=== PATIENT | female | born 1950 | race Caucasian/White ===

== ENCOUNTER → 2017-09-29 09:09 | Outpatient (CLI) | payer MEDICARE, SELFPAY ==
--- NOTE | 2017-09-29 | DI.RAD.S_ITS ---
PROCEDURE: XR CHEST 2V INDICATIONS: TOBACCO USE AND WHEEZING TECHNIQUE: 2 views of the chest were acquired. COMPARISON: None. FINDINGS: Surgical changes and devices: None. Lungs and pleura: No pleural effusions or pneumothorax. Lungs are abnormal, with large lung volumes and an interstitial prominence but no definite mass lesion is seen. Mediastinum: Mediastinal contours are normal. Heart size is normal. Bones and chest wall: No suspicious bony abnormalities. Soft tissues appear unremarkable. IMPRESSION: A pneumonia or underlying neoplasm is not identified. Depending on clinical status, however, followup CT scanning may be warranted. A small endobronchial mass may not be detectable by plain film but often would be detectable by CT scanning if it is causing the wheezing clinically reported. Dictated by: Vernon Tao M.D. on 09/29/2017 at 9:52 Approved by: Vernon Tao M.D. on 09/29/2017 at 9:54
== END ==
PROVIDERS: PCP Family Medicine; Visit Provider Family Medicine
DX: R06.02 Shortness of breath (principal); F17.201 Nicotine dependence, unspecified, in remission
CPT/HCPCS: 71046

== ENCOUNTER 2018-05-24 08:42 | Day surgery (SDC) | payer MEDICARE, SELFPAY ==
[2018-05-24] VITALS (7 sets, daily range): BP systolic 106–127; BP diastolic 46–74; PULSE 66–104; RESP 14–22; TEMP 36.3–37.1; O2SAT 92–99; BMI 19.7
--- NOTE | 2018-05-24 | PATH_ITS ---
[facility] Accession Number: [id number] . 01 Material submitted: . sigmoid colon - SIGMOID POLYP . 02 Diagnosis: Sigmoid Colon, Polyp: Hyperplastic polyp. MRV/05/25/2018 . 02 Electronically signed: . Agustin Bell MD, PhD, Pathologist NPI- [id number] . 01 Gross description: . SIGMOID POLYP: Received in formalin is 1 fragment(s) of graham, soft tissue measuring 0.3 x 0.2 x 0.2 cm which is entirely submitted and submitted entirely in 1 cassette(s) /DMC /DMC . 02 Pathologist provided ICD-10: K63.5 . 02 CPT . 615920 Performed at: 01 [facility] [address] [id number] MD Vito Em MD Phone: [phone] Performed at: 02 [facility] [address] [place], [place] [id number] MD Slime Santos MD Phone: [phone]
[2018-05-24] MEDS: LACTATED RINGERS 1,000 ML 200 ML IV (09:06)
--- NOTE | 2018-05-24 09:21 | SUR.OPER ---
GLASSES IN LABELED BAG TO PACU WITH PATIENT
[2018-05-24] MEDS: MIDAZOLAM 5 MG/5 ML VIAL IV (09:48)
[2018-05-24] MEDS: fentaNYL 250 MCG/5 ML INJ IV (09:48)
[2018-05-24] MEDS: ONDANSETRON 4 MG/2 ML INJ IV (10:07)
--- NOTE | 2018-05-24 11:00 | PM.HP.1 ---
History of Present Illness Date Patient Seen: 05/24/18 Time Patient Seen: 09:00 Chief complaint: [id number] Narrative: 68yo F for high risk screening colonoscopy. Father of CRC. Has scopes every 5 years, has had benign polyps. No symptoms of blood in stools, change in stool caliber, or weight loss. Otherwise in good health. Patient History Social History household members: spouse Family & Social History Social History: household members spouse Meds Home Medications Medication Instructions Recorded Confirmed Type atorvastatin 10 mg PO DAILY 05/24/18 05/24/18 History Allergies Allergy/AdvReac Type Severity Reaction Status Date / Time No Known Drug Allergies Allergy Verified 05/24/18 09:10 Review of Systems Constitutional Constitutional: Reports as per HPI Exam Vital Signs (past 8 hours): - 05/24/18 08:59 05/24/18 10:16 05/24/18 10:21 Temperature 98.8 F 97.3 F L Pulse Rate 104 H 75 78 Respiratory Rate 20 22 21 Blood Pressure 127/74 106/58 L 107/57 L Pulse Oximetry 97 94 94 05/24/18 10:26 05/24/18 10:32 05/24/18 10:39 Temperature 97.7 F Pulse Rate 70 70 66 Respiratory Rate 19 20 14 Blood Pressure 109/55 L 116/46 L 106/58 L Pulse Oximetry 92 99 97 Oxygen Delivery Method Room Air Narrative Exam Narrative: AAO, NAD, female of healthy weight EOMI, MMM, no scleral icterus unlabored RA soft, nt/nd MAEW Assessment & Plan (1) Encounter for screening colonoscopy for [id number] patient: Current visit: Yes Status: Acute Assessment & Plan narrative: - colonoscopy --> all R/B/A discussed and pt wishes to proceed
--- NOTE | 2018-05-24 11:03 | P.HP_ITS ---
History of Present Illness Date Patient Seen: 05/24/18 Time Patient Seen: 09:00 Chief complaint: [id number] Narrative: 68yo F for high risk screening colonoscopy. Father of CRC. Has scopes every 5 years, has had benign polyps. No symptoms of blood in stools, change in stool caliber, or weight loss. Otherwise in good health. Patient History Social History household members: spouse Family & Social History Social History: household members spouse Meds Home Medications Medication Instructions Recorded Confirmed Type atorvastatin 10 mg PO DAILY 05/24/18 05/24/18 History Allergies Allergy/AdvReac Type Severity Reaction Status Date / Time No Known Drug Allergies Allergy Verified 05/24/18 09:10 Review of Systems Constitutional Constitutional: Reports as per HPI Exam Vital Signs (past 8 hours): - 05/24/18 08:59 05/24/18 10:16 05/24/18 10:21 Temperature 98.8 F 97.3 F L Pulse Rate 104 H 75 78 Respiratory Rate 20 22 21 Blood Pressure 127/74 106/58 L 107/57 L Pulse Oximetry 97 94 94 05/24/18 10:26 05/24/18 10:32 05/24/18 10:39 Temperature 97.7 F Pulse Rate 70 70 66 Respiratory Rate 19 20 14 Blood Pressure 109/55 L 116/46 L 106/58 L Pulse Oximetry 92 99 97 Oxygen Delivery Method Room Air Narrative Exam Narrative: AAO, NAD, female of healthy weight EOMI, MMM, no scleral icterus unlabored RA soft, nt/nd MAEW Assessment & Plan (1) Encounter for screening colonoscopy for [id number] patient: Current visit: Yes Status: Acute Assessment & Plan narrative: - colonoscopy --> all R/B/A discussed and pt wishes to proceed
--- NOTE | 2018-05-24 11:03 | PM.OP.ENDO ---
Operative Date/Time/Diagnoses Date of procedure: 05/24/18 Time of procedure: 10:03 Pre-op diagnosis: high risk screen for colorectal cancer Post-op diagnosis: same Procedure & Clinicians Study performed: high risk screening colonoscopy Same procedure as scheduled: Yes Indications: family h/o CRC Procedure Notes SCOAP/Timeout: 918 Procedure in detail: After obtaining informed consent, the patient was brought to the GI suite and placed in the left lateral decubitus position on the examination table. After placement of appropriate monitors, the patient was given incremental doses of Versed and Fentanyl until an appropriate level of sedation was achieved. A time out was held per SCOAP protocol. A digital rectal examination was performed and did not reveal any masses or obstructing lesions but small external hemorrhoids are noted. The colonoscope was gently passed into the patient's anus and the entire colon navigated to the level of the cecum with significant difficulty due to tortuosity. Prep was good. Once in the cecum, the scope was withdrawn being sure to go before and beyond all mucosal folds and prominences as able to get an excellent examination. A 1mm hyperplastic polyp was removed with cold forceps in the sigmoid colon. Scattered small and large diverticula were present in the sigmoid colon. At the level of the rectal vault, the scope was retroflexed and the internal anal canal was examined. The scope was straightened and air aspirated from the colon. The instrument was removed from the patient's body and the procedure was concluded. The patient was allowed to awaken from sedation without difficulty and taken to the post-anesthesia care unit in good condition. Scope withdrawal time: 17 Sedation minutes: 51 Findings: diverticulosis and polyp (tiny, hyperplastic, in sigmoid) Specimen(s): other (sigmoid polyp) Complications: none Impression: 1. Diverticulosis 2. Small hyperplastic-appearing polyp in sigmoid colon sent for specimen Recommendations: Colonscopy in 5 years (pending path) and High fiber diet Follow up: as needed Disposition: same day surgery
--- NOTE | 2018-05-24 11:17 | SUR.PHASEII ---
Pt to repeat colonoscopy in 5 yrs, pending pathology per Dr. Phan. Pt notified.
== END 2018-05-24 11:14 | disposition home or self-care (01) ==
PROVIDERS: PCP Family Medicine; Visit Provider Surgery
PROC: 0DJD8ZZ Inspection of Lower Intestinal Tract, Via Natural or Artificial Opening Endoscopic (ICD-10-PCS; CPT 45378; principal; 2018-05-24 09:45)
DX: Z86.010 Personal history of colon polyps (principal); Z80.0 Family history of malignant neoplasm of digestive organs; K57.30 Diverticulosis of large intestine without perforation or abscess without bleeding; D12.5 Benign neoplasm of sigmoid colon
CPT/HCPCS: 45380; 88305; 99152; 99153; J2250; J2405; J3010

== ENCOUNTER → 2018-06-05 09:34 | Outpatient (CLI) | payer MEDICARE, SELFPAY ==
--- NOTE | 2018-06-05 | DI.MG.S_ITS ---
BILATERAL DIGITAL SCREENING MAMMOGRAM 3D/2D WITH CAD: 06/05/2018 CLINICAL: Routine screening. Comparison is made to exams dated: 05/19/2017 mammogram, 10/01/2012 mammogram, and 09/04/2011 mammogram - [facility]. The tissue of both breasts is heterogeneously dense. This may lower the sensitivity of mammography. Current study was also evaluated with a Computer Aided Detection (CAD) system. There are benign calcifications in both breasts. No significant masses, calcifications, or other findings are seen in either breast. There has been no significant interval change. IMPRESSION: There is no mammographic evidence of malignancy. A 1 year screening mammogram is recommended. This exam was interpreted at Station ID: [id number]. NOTE: For mammograms, a report in lay terms will be sent to the patient. Approximately 15% of breast malignancies will not be visualized mammographically. In the management of a palpable breast mass, a negative mammogram must not discourage biopsy of a clinically suspicious lesion. Electronically Signed By: Moises aragon/marnie:06/07/2018 07:36:46 letter sent: Normal Exam ACR BI-RADS Category 2: Benign Finding(s) 3342F
== END ==
PROVIDERS: PCP Family Medicine; Visit Provider Family Medicine
DX: Z12.31 Encounter for screening mammogram for malignant neoplasm of breast (principal)
CPT/HCPCS: 77063; 77067

== ENCOUNTER → 2019-10-05 12:29 | Outpatient (CLI) | payer MEDICARE, SELFPAY ==
--- NOTE | 2019-10-05 12:44 | DI.MG.S_ITS ---
Patient Name: ESPINOZA WHIPPLE date: 1950 Sex: F Attending Physician: Anuel Indications: Date: 10/05/2019 12:38 At the request of: CLEMENT WHITLEY Procedure: MM screening mammo BI BILATERAL DIGITAL SCREENING MAMMOGRAM 3D/2D WITH CAD: 10/05/2019 CLINICAL: Routine screening. Comparison is made to exams dated: 06/05/2018 mammogram, 05/19/2017 mammogram, and 10/01/2012 mammogram - [facility]. The tissue of both breasts is heterogeneously dense. This may lower the sensitivity of mammography. Current study was also evaluated with a Computer Aided Detection (CAD) system. There are benign calcifications in both breasts. No significant masses, calcifications, or other findings are seen in either breast. There has been no significant interval change. IMPRESSION: BENIGN There is no mammographic evidence of malignancy. A 1 year screening mammogram is recommended. This exam was interpreted at Station ID: [id number]. NOTE: For mammograms, a report in lay terms will be sent to the patient. Approximately 15% of breast malignancies will not be visualized mammographically. In the management of a palpable breast mass, a negative mammogram must not discourage biopsy of a clinically suspicious lesion. Electronically Signed By: Moises aragon/marnie:10/05/2019 14:27:50 letter sent: Normal Exam ACR BI-RADS Category 2: Benign Finding(s) 3342F
== END ==
PROVIDERS: PCP Family Medicine; Referring Provider Family Medicine; Visit Provider Family Medicine
DX: Z12.31 Encounter for screening mammogram for malignant neoplasm of breast (principal); Z78.0 Asymptomatic menopausal state; M81.0 Age-related osteoporosis without current pathological fracture; F17.200 Nicotine dependence, unspecified, uncomplicated
CPT/HCPCS: 77063; 77067; 77080

== ENCOUNTER → 2020-10-13 08:08 | Outpatient (CLI) | payer MEDICARE, SELFPAY ==
--- NOTE | 2020-10-13 08:11 | DI.MG.S_ITS ---
BILATERAL DIGITAL SCREENING MAMMOGRAM 3D/2D WITH CAD: 10/13/2020 CLINICAL: Routine screening. Comparison is made to exams dated: 10/05/2019 mammogram, 06/05/2018 mammogram, 05/19/2017 mammogram, and 10/01/2012 mammogram - [facility]. The tissue of both breasts is heterogeneously dense. This may lower the sensitivity of mammography. Current study was also evaluated with a Computer Aided Detection (CAD) system. There are benign calcifications in both breasts. No significant masses, calcifications, or other findings are seen in either breast. There has been no significant interval change. IMPRESSION: BENIGN There is no mammographic evidence of malignancy. A 1 year screening mammogram is recommended. This exam was interpreted at Station ID: [id number]. NOTE: For mammograms, a report in lay terms will be sent to the patient. Approximately 15% of breast malignancies will not be visualized mammographically. In the management of a palpable breast mass, a negative mammogram must not discourage biopsy of a clinically suspicious lesion. Electronically Signed By: Dima loya/marnie:10/16/2020 08:06:17 letter sent: Normal Exam ACR BI-RADS Category 2: Benign Finding(s) 3342F
== END ==
PROVIDERS: PCP Family Medicine; Referring Provider Family Medicine; Visit Provider Family Medicine
DX: Z12.31 Encounter for screening mammogram for malignant neoplasm of breast (principal)
CPT/HCPCS: 77063; 77067